=== PATIENT | female | born 1965 | race Caucasian/White ===

== ENCOUNTER → 2017-11-05 | Outpatient (CLI) | payer BC ==
[2017-08-20 02:20] VITALS: BP 127/74
[~2017-11-05] MED LIST: APPLE CIDER VI300 MG PO; CIPRO 500MG TA500 MG PO; LOPRESSOR 225 MG/TAB PO; MIDOL CAPLET1 EACH PO; NATURAL FLAX1000 MG PO; PERCOCET 325 MG1 TA2 PO; PRAVACHOL 20MG20 MG PO; SYNTHROID0.05 MG PO; ZESTRIL20 M1 PO
[2017-11-05 09:00] LABS: URINE APPEARANCE CLEAR; URINE BILIRUBIN NEGATIVE (NEGATIVE); URINE BLOOD TRACE (NEGATIVE); URINE COLOR YELLOW; URINE GLUCOSE NEGATIVE (NEGATIVE); URINE KETONE NEGATIVE (NEGATIVE); URINE LEUKOCYTE ESTERASE NEGATIVE (NEGATIVE); URINE NITRATE NEGATIVE (NEGATIVE); URINE PROTEIN(semi-quant) NEGATIVE (NEGATIVE); URINE UROBILINOGEN NORMAL (NORMAL)
== END ==
LOC: LAB 08:39
PROVIDERS: Urology
DX: R30.0 Dysuria (principal)

== ENCOUNTER → 2018-05-10 | Outpatient (CLI) | payer BC ==
[2017-08-20 02:20] VITALS: BP 127/74
== END ==
LOC: MAMMO 12:53
DX: Z12.31 Encounter for screening mammogram for malignant neoplasm of breast (principal)

== ENCOUNTER → 2022-02-16 | Outpatient (CLI) | payer OTHER | LOC: RAD 12:44 | DX: K56.609 Unspecified intestinal obstruction, unspecified as to partial versus complete obstruction (principal); K46.9 Unspecified abdominal hernia without obstruction or gangrene; K52.9 Noninfective gastroenteritis and colitis, unspecified; N28.89 Other specified disorders of kidney and ureter; K76.0 Fatty (change of) liver, not elsewhere classified; Z90.5 Acquired absence of kidney | CPT/HCPCS: Q9967 ==